=== PATIENT | female | born 1970 | race Caucasian/White ===

== ENCOUNTER 2016-11-12 16:14 | Emergency (ER) | payer BC ==
[~2016-11-12] VITALS: Ht 177.8 cm; Wt 118.0 kg
[2016-11-12 16:17] VITALS: BP 140/80; PULSE 102; RESP 24; TEMP 98.3; O2SAT 99
--- NOTE | 2016-11-12 17:29 | PD ---
HPI Chief Complaint: Fall Time Seen by Provider: 17:25 Travel History International Travel<30 days: No Contact w/Intl Traveler<30days: No Traveled to known affect area: No History of Present Illness HPI 46-year-old female presenting to the emergency department status post fall down 3 steps just prior to arrival. Patient states these were wet steps with Tylenol on them and a sharp edge. She landed on her back and hit 3 steps mid lumbar region. She now has pain, swelling, and abrasion with ecchymosis on her back, mid lumbar region. She has tenderness into the left buttock as well. She is able to ambulate without difficulty. She has no radicular symptoms. She also has a small abrasion and ecchymosis to the left posterior elbow. Pain in this area is minimal. Pain in the back is worse with palpation and movement. She rates it as an 8 out of 10. She denies hitting her head or loss of consciousness. She has no upper back or neck pain. She is unsure of her last tetanus shot. She and her are visiting from [place]. She has no known drug allergies. [facility] Past Medical History ?: Not LMP: 11/05/16 Social History Alcohol Use: Yes Tobacco Use: No Substance Use: No Allergies-Medications (Allergen,Severity, Reaction): Coded Allergies: No Known Allergies (Unverified , 11/12/16) Reported Meds & Prescriptions Reported Meds & Active Scripts Active Reported Cymbalta DR (Duloxetine HCl) 60 Mg Capdr 60 Mg PO DAILY Review of Systems Except as stated in HPI: all other systems reviewed are Neg General / Constitutional: No: Fever Eyes: No: Visual changes HENT: No: Headaches Cardiovascular: No: Chest Pain or Discomfort Respiratory: No: Shortness of Breath Gastrointestinal: No: Abdominal Pain Genitourinary: No: Dysuria Musculoskeletal: No: Pain Skin: No Rash Neurologic: No: Weakness Psychiatric: No: Depression Endocrine: No: Polydipsia Hematologic/Lymphatic: No: Easy Bruising Physical Exam Narrative GENERAL: Patient is moderately obese. She appears in moderate distress. SKIN: Warm and dry. Normal color. Normal turgor. Patient has abrasion with ecchymosis and area of swelling measuring approximately 4" x 6" in the mid lumbar region. This area is tender with palpation. HEAD: Atraumatic. Normocephalic. EYES: Pupils equal and round. No scleral icterus. No injection or drainage. ENT: No nasal bleeding or discharge. Mucous membranes pink and moist. NECK: Trachea midline. No JVD. CARDIOVASCULAR: Regular rate and rhythm. RESPIRATORY: No accessory muscle use. Clear to auscultation. Breath sounds equal bilaterally. GASTROINTESTINAL: Abdomen soft, non-tender, nondistended. Hepatic and splenic margins not palpable. MUSCULOSKELETAL: Extremities without clubbing, cyanosis, or edema. No obvious deformities. Patient has soft tissue tenderness in the left buttock, and lumbar spine region as described under SKIN. Patient has small abrasion and ecchymosis to the posterior left elbow as well. Range of motion of the elbow is normal. No other significant findings are noted muscle skeletal exam. NEUROLOGICAL: Awake and alert. No obvious cranial nerve deficits. Motor grossly within normal limits. Five out of 5 muscle strength in the arms and legs. Normal speech. PSYCHIATRIC: Appropriate mood and affect; insight and judgment normal. Data Data Last Documented VS Vital Signs Date Time Temp Pulse Resp B/P Pulse Ox O2 Delivery O2 Flow Rate FiO2 11/12/16 16:17 98.3 102 24 140/80 99 Room Air Orders Spine, Lumbar - Ltd (Ap & Lat) (11/12/16 17:22) Ketorolac Inj (Toradol Inj) (11/12/16 17:30) Tetanus/Diphtheria Tox Adult (Tetanus/Di (11/12/16 17:30) Ice/Cold Pack (11/12/16 17:22) MDM Medical Decision Making Medical Screen Exam Complete: Yes Emergency Medical Condition: Yes Differential Diagnosis Slip and fall. Contusion to back. Left elbow contusion. Abrasion. Hematoma. Narrative Course Patient is medically stable at time of exam. Patient is given Toradol 60 mg IM. Patient is given ice packs for the areas. X-rays of the lumbar spine are ordered. X-ray show no acute process per radiologist. Patient was discharged with ibuprofen 600 mg 4 times a day #40. Patient also given Norflex 100 mg twice a day #10. Patient also given tramadol 50 mg one every 6 hours when necessary pain. Patient is to use ice to the area frequently for the next 48 hours. Patient should then start using hot packs for 20 minutes followed by ice until better. Patient follow with her primary care physician or return to emergency department as needed Diagnosis Primary Impression: Slipping, tripping and stumbling without falling due to stepping from one level to another, initial encounter Additional Impression: Contusion of lower back Qualified Code: S30.0XXA - Contusion of lower back, initial encounter Referrals: Primary Care Physician Patient Instructions: Contusion in Adults (ED), General Instructions Additional Instructions: X-ray show no acute process per radiologist. Patient was discharged with ibuprofen 600 mg 4 times a day #40. Patient also given Norflex 100 mg twice a day #10. Patient also given tramadol 50 mg one every 6 hours when necessary pain. Patient is to use ice to the area frequently for the next 48 hours. Patient should then start using hot packs for 20 minutes followed by ice until better. Patient follow with her primary care physician or return to emergency department as needed Scripts Tramadol 50 Mg Tab50 Mg PO Q6H PRN (PAIN) #20 TAB Prov:Miles Briceno MD 11/12/16 Orphenadrine ER 12 HR (Orphenadrine CR)100 Mg [id number] Mg PO Q12HR #10 TAB Prov:Miles Briceno MD 11/12/16 Ibuprofen 600 Mg [id number] Mg PO Q6H PRN (Pain/Inflammation) #40 TAB Prov:Miles Briceno MD 11/12/16 Disposition: 01 DISCHARGE HOME Condition: Stable Marcelino Franks Nov 12, 2016 17:29
[2016-11-12] MEDS ORDERED: TETANUS/DIPHTHERIA TOXOID ADULT 0.5 ML VIAL IM ONE (17:30)
[2016-11-12] MEDS ORDERED: KETOROLAC TROMETHAMINE 60 MG/2 ML (IM) VIAL IM ONE (17:30)
--- NOTE | 2016-11-12 17:50 | RADRPT ---
EXAM DATE/TIME: 11/12/2016 17:34 [facility] COMPARISON: No previous studies available for comparison. INDICATIONS : Lower back pain after fall. MEDICAL HISTORY : None. SURGICAL HISTORY : None. ENCOUNTER: Initial ACUITY: 1 day PAIN SCORE: 10/10 LOCATION: Bilateral lower back FINDINGS: Mild degenerative changes are noted throughout the lumbar spine. There is no acute compression fract ure, spondylolisthesis, or spondylolysis. CONCLUSION: 1. Mild degenerative changes throughout the lumbar spine. 2. No acute compression fracture, spondylolisthesis, or spondylolysis. Nigel Anne MD on November 12, 2016 at 17:46 Board Certified Radiologist. This report was verified electronically.
[2016-11-12] MEDS ORDERED: CYMB60CA PO (17:56)
[2016-11-12] MEDS ORDERED: TRAM50TA PO ×2 (18:07→18:11)
[2016-11-12] MEDS ORDERED: ORPH100T99 PO (18:07)
[2016-11-12] MEDS ORDERED: IBUP-232 PO (18:07)
== END 2016-11-12 18:43 | disposition home or self-care (01) ==
LOC: NEPK 16:14
DX: S30.0XXA Contusion of lower back and pelvis, initial encounter (principal); W10.9XXA Fall (on) (from) unspecified stairs and steps, initial encounter; Y93.9 Activity, unspecified; Y92.9 Unspecified place or not applicable
CPT/HCPCS: 72100; 90714; 96372; 96374; 99284; J1885